=== PATIENT | female | born 1995 | race Two or more races ===

== ENCOUNTER 2022-07-22 10:28 | Emergency (ER) | payer SELFPAY ==
[~2022-07-22] VITALS: Ht 167.6 cm; Wt 68.0 kg
[2022-07-22 12:00] VITALS: BP 168/104
[2022-07-22 12:38] LABS: Basophils # (auto) 0 10 ^3/uL (0-0.2); Basophils % (auto) 0.3 % (0.0-2.0); Eosinophils # (auto) 0.1 10 ^3/uL (0-0.8); Eosinophils % (auto) 1.3 % (0.0-7.0); Hematocrit 39.9 % (36.0-46.0); Hemoglobin 12.9 g/dL (12.2-16.2); Lymphocytes % (auto) 30.8 % (10.0-50.0); Mean Corpuscular Hgb Conc. 32.3 g/dL (32.0-36.0); Mean Corpuscular Volume 83.6 fL (80.0-100.0); Monocytes # (auto) 0.4 10 ^3/uL (0-1.3); Monocytes % (auto) 6.3 % (0.0-12.0); Neutrophils % (auto) 61.3 % (37.0-80.0); Nucleated Red Blood Cells % 0.1 %; Red Blood Cells 4.77 10^6/uL (4.0-5.20); Red Cell Distribution Width 14.5 % (11.8-14.3); White Blood Cell 6.6 10^3/uL (4.4-10.8)
[2022-07-22 12:45] LABS: Urine Bacteria NONE SEEN /hpf (None Seen); Urine Blood Negative /uL (Negative); Urine Mucus FEW (None Seen); Urine Specific Gravity 1.011 (1.001-1.035); Urine WBC <1 /hpf (0 - 5)
[2022-07-22 13:02] LABS: Albumin 3.7 g/dL (3.4-5.0); Calcium 8.5 mg/dL (8.5-10.1); Potassium 3.8 mmol/L (3.5-5.1)
[2022-07-22 13:06] LABS: BUN/Creatinine Ratio 11.9; Bilirubin, Total 0.2 mg/dL (0.2-1.0); Total Protein 7.6 g/dL (6.4-8.2)
[2022-07-22] MEDS ORDERED: METH250T8 PO (13:43)
== END 2022-07-22 13:50 | disposition home or self-care (01) ==
LOC: ER 10:28
DX: O20.0 Threatened abortion (principal); O16.1 Unspecified maternal hypertension, first trimester; Z3A.01 Less than 8 weeks gestation of pregnancy
CPT/HCPCS: 36415; 80053; 81001; 84702; 85025

== ENCOUNTER 2022-07-26 11:50 | Emergency (ER) | payer SELFPAY ==
[~2022-07-26] VITALS: Ht 152.4 cm; Wt 68.6 kg
[~2022-07-26 11:50] MED LIST: METH250T8 PO
[2022-07-26 13:41] LABS: Basophils # (auto) 0.1 10 ^3/uL (0-0.2); Basophils % (auto) 0.8 % (0.0-2.0); Eosinophils # (auto) 0.1 10 ^3/uL (0-0.8); Eosinophils % (auto) 1.7 % (0.0-7.0); Hematocrit 38.6 % (36.0-46.0); Hemoglobin 12.6 g/dL (12.2-16.2); Lymphocytes # (auto) 2.6 10 ^3/uL (0.4-5.4); Lymphocytes % (auto) 37.8 % (10.0-50.0); Mean Corpuscular Hemoglobin 27.2 pg (28.0-32.0); Mean Corpuscular Hgb Conc. 32.7 g/dL (32.0-36.0); Monocytes # (auto) 0.4 10 ^3/uL (0-1.3); Monocytes % (auto) 6.3 % (0.0-12.0); Neutrophils # (auto) 3.7 10 ^3/uL (1.6-8.6); Neutrophils % (auto) 53.4 % (37.0-80.0); Red Blood Cells 4.65 10^6/uL (4.0-5.20); Red Cell Distribution Width 14.4 % (11.8-14.3); White Blood Cell 6.9 10^3/uL (4.4-10.8)
[2022-07-26 14:00] LABS: Albumin 3.8 g/dL (3.4-5.0); BUN/Creatinine Ratio 12.3; Calcium 8.8 mg/dL (8.5-10.1)
[2022-07-26 14:14] LABS: Bilirubin, Total 0.2 mg/dL (0.2-1.0); Total Protein 7.8 g/dL (6.4-8.2)
[2022-07-26 19:44] VITALS: BP 168/98
== END 2022-07-26 19:50 | disposition home or self-care (01) ==
LOC: ER 11:50
DX: O03.9 Complete or unspecified spontaneous abortion without complication (principal); O16.1 Unspecified maternal hypertension, first trimester; Z3A.01 Less than 8 weeks gestation of pregnancy
CPT/HCPCS: 36415; 76856; 80053; 84702; 85025

== ENCOUNTER 2024-05-08 14:40 | Observation (INO) | payer MEDICAID ==
[~2024-05-08 14:40] MED LIST changes: +METH250T28 PO; -METH250T8 PO
[2024-05-08 16:14] LABS: Alanine Aminotransferase 32 U/L (7-40); Albumin 3.8 g/dL (3.2-4.8); Alkaline Phosphatase 195 U/L (46-116); Anion Gap 6 (5-15); Aspartate Aminotransferase 21 U/L (13-40); BUN/Creatinine Ratio 11.3 (10.0-20.0); Bilirubin, Total 0.2 mg/dL (0.2-1.0); Blood Urea Nitrogen 6 mg/dL (9-23); Calcium 9.1 mg/dL (8.7-10.4); Carbon Dioxide 21 mmol/L (20-30); Chloride 108 mmol/L (98-107); Glucose 102 mg/dL (74-106); Potassium 3.9 mmol/L (3.5-5.1); Sodium 135 mmol/L (136-145); Total Protein 6.6 g/dL (5.7-8.2); Uric Acid 4.1 mg/dL (3.1-7.8)
[2024-05-08] MEDS ORDERED: LABE300T5 PO (16:15)
[2024-05-08 16:26] LABS: INR 0.9 (0.9-1.15); Partial Thromboplastin Time 26.9 SEC (24.5-34.5); Prothrombin Time 9.6 sec (9.3-11.8)
[2024-05-08 16:53] LABS: Urine Bacteria FEW /hpf (None Seen); Urine Blood Negative /uL (Negative); Urine Clarity Clear (Clear); Urine Color Colorless (Yellow); Urine Protein, UAD Negative (Negative); Urine Specific Gravity 1.004 (1.001-1.035); Urine Urobilinogen Normal (Negative); Urine WBC 3 /hpf (0 - 5); Urine pH 6.5 (5.0-9.0)
[2024-05-08 17:34] LABS: Basophils # (auto) 0 10 ^3/uL (0-0.2); Eosinophils # (auto) 0.1 10 ^3/uL (0-0.8); Hemoglobin 10.1 g/dL (12.2-16.2); Mean Corpuscular Hemoglobin 24.6 pg (28.0-32.0); Mean Corpuscular Hgb Conc. 32.3 g/dL (32.0-36.0); Monocytes # (auto) 0.5 10 ^3/uL (0-1.3); Neutrophils # (auto) 5.1 10 ^3/uL (1.6-8.6); Nucleated Red Blood Cells % 0.1 %; White Blood Cell 7.5 10^3/uL (4.4-10.8)
[2024-05-08 17:37] LABS: Basophils % (auto) 0.3 % (0.0-2.0); Hematocrit 31.3 % (36.0-46.0); Lymphocytes # (auto) 1.9 10 ^3/uL (0.4-5.4); Lymphocytes % (auto) 24.6 % (10.0-50.0); Mean Corpuscular Volume 76.3 fL (80.0-100.0); Monocytes % (auto) 6.6 % (0.0-12.0); Neutrophils % (auto) 67.5 % (37.0-80.0); Red Blood Cells 4.11 10^6/uL (4.0-5.20); Red Cell Distribution Width 17.8 % (11.8-14.3)
[2024-05-08 18:01] LABS: Protein, Urine 6.1 mg/dL (0.0-11.9)
[2024-05-08 18:03] LABS: Urine Protein/Creatinine Ratio 0.27
== END 2024-05-08 18:54 | disposition home or self-care (01) ==
LOC: LDRP 14:40 → UNDOADMOB 14:40 → LDRP 14:58
PROVIDERS: ADMIT Obstetrics & Gynecology; ATTEND Obstetrics & Gynecology
DX: O13.3 Gestational [pregnancy-induced] hypertension without significant proteinuria, third trimester (principal); Z3A.38 38 weeks gestation of pregnancy
CPT/HCPCS: 36415; 59025; 76818; 80053; 81001; 81002; 82570; 84156; 84550; 85025; 85610; 85730; 94760; G0378

== ENCOUNTER 2024-05-10 19:39 | Inpatient (IN) | payer MEDICAID ==
[~2024-05-10] VITALS: Ht 162 cm; Wt 89.4 kg
[~2024-05-10 19:39] MED LIST changes: +LABE300T5 PO
[2024-05-10] MEDS ORDERED: BUTORPHANOL TARTRATE 2 MG/1 ML VIAL IV PRN ×2 (22:15)
[2024-05-10] MEDS ORDERED: LIDOCAINE 2%HCL (LOCAL ANESTH.) INJ 20ML MDV IJ PRN (22:15)
[2024-05-10 22:52] LABS: Basophils # (auto) 0.1 10 ^3/uL (0-0.2); Basophils % (auto) 0.5 % (0.0-2.0); Eosinophils # (auto) 0.1 10 ^3/uL (0-0.8); Eosinophils % (auto) 0.8 % (0.0-7.0); Hematocrit 34.2 % (36.0-46.0); Lymphocytes # (auto) 2.8 10 ^3/uL (0.4-5.4); Lymphocytes % (auto) 29.4 % (10.0-50.0); Mean Corpuscular Hemoglobin 24.4 pg (28.0-32.0); Mean Corpuscular Hgb Conc. 32.1 g/dL (32.0-36.0); Mean Corpuscular Volume 76.1 fL (80.0-100.0); Monocytes # (auto) 0.6 10 ^3/uL (0-1.3); Monocytes % (auto) 6.1 % (0.0-12.0); Neutrophils % (auto) 63.2 % (37.0-80.0); Nucleated Red Blood Cells % 0.1 %; Red Blood Cells 4.49 10^6/uL (4.0-5.20); Red Cell Distribution Width 18.1 % (11.8-14.3); White Blood Cell 9.5 10^3/uL (4.4-10.8)
[2024-05-10 23:07] LABS: INR 0.92 (0.9-1.15); Partial Thromboplastin Time 25.4 SEC (24.5-34.5); Prothrombin Time 9.8 sec (9.3-11.8)
[2024-05-10 23:08] LABS: Alanine Aminotransferase 37 U/L (7-40); Albumin 4.2 g/dL (3.2-4.8); Alkaline Phosphatase 216 U/L (46-116); Anion Gap 8 (5-15); Aspartate Aminotransferase 22 U/L (13-40); BUN/Creatinine Ratio 10.8 (10.0-20.0); Blood Urea Nitrogen 7 mg/dL (9-23); Calcium 9.4 mg/dL (8.5-10.1); Carbon Dioxide 22 mmol/L (20-30); Chloride 107 mmol/L (98-107); Glucose 67 mg/dL (74-106); Potassium 4.1 mmol/L (3.5-5.1); Sodium 137 mmol/L (136-145)
[2024-05-10 23:09] LABS: Bilirubin, Total 0.3 mg/dL (0.2-1.0); Total Protein 7.2 g/dL (5.7-8.2)
[2024-05-10] MEDS: LACTATED RINGER'S 1,000 ML IV SCH (23:30)
[2024-05-10 23:48] LABS: Uric Acid 4.3 mg/dL (3.1-7.8)
[2024-05-11] VITALS (13 sets, daily range): BP systolic 115–139; BP diastolic 71–82; PULSE 77–92; RESP 16–17; TEMP 98.8; O2SAT 97–99
[2024-05-11 00:31] LABS: Urine Bacteria None Seen /hpf (None Seen)
[2024-05-11 00:39] LABS: Urine Blood Negative /uL (Negative); Urine Clarity Clear (Clear); Urine Color Light-Yellow (Yellow); Urine Protein, UAD TRACE (Negative); Urine Specific Gravity 1.014 (1.001-1.035); Urine Urobilinogen Normal (Negative); Urine WBC <1 /hpf (0 - 5); Urine pH 6.5 (5.0-9.0)
[2024-05-11] MEDS: WITCH HAZEL-GLYCERIN PAD TOP PRN (01:01)
[2024-05-11] MEDS: PHISODERM TOP SOLN 240ML BTL TOP PRN (01:01)
[2024-05-11] MEDS: miSOPROStol 50 MCG per PRE-CUT 1/2 TAB PO PRN (01:01)
[2024-05-11] MEDS: DERMOPLAST 60ML BOTTLE TOP PRN (01:01)
[2024-05-11 01:31] LABS: Protein, Urine 25.8 mg/dL (0.0-11.9)
[2024-05-11 01:33] LABS: Amphetamine Screen, Urine Neg (NEGATIVE)
[2024-05-11 01:34] LABS: Barbiturate Scree,Urine Neg (NEGATIVE); Benzodiazephine Screen, Urine Neg (NEGATIVE); Cannabinoid Screen, Urine Neg (NEGATIVE); Cocaine Screen, Urine Neg (NEGATIVE); Creatinine, Urine 63.39 mg/dL (30.0-125.0); Opiate Scree,Urine Neg (NEGATIVE); Phencyclidine Screen, Urine Neg (NEGATIVE); Urine Protein/Creatinine Ratio 0.41
[2024-05-11] MEDS ORDERED: PENICILLIN G POTASSIUM 2,500,000 UNITS in D5W 5% 50 ML IV SCH (02:15)
[2024-05-11] MEDS: LABETALOL HCL 200 MG TAB PO SCH ×2 (06:24→18:00)
[2024-05-11] MEDS: LACTATED RINGER'S 1,000 ML IV ONE (08:27)
[2024-05-11] MEDS: ROPIVACAINE HCL 200 ML ONE (09:01)
[2024-05-11] MEDS ORDERED: LABETALOL HCL 200 MG TAB PO SCH (10:00)
[2024-05-11] MEDS: PENICILLIN G POT 5MIL/D5 50ML 50 ML IV ONE (14:19)
[2024-05-11] MEDS: LACT. RINGERS/OXYTOCIN 20UNITS 500 ML IV ONE ×2 (16:23→17:19)
[2024-05-11] MEDS: MAGNESIUM SULFATE 100 ML IV ONE ×2 (17:10→18:04)
[2024-05-11] MEDS: MAGNESIUM SULFATE 40MG/ML 1,000 ML IV ONE (17:31)
[2024-05-11] MEDS: LORazepam 2MG/ML-1ML VIAL IV ONE (17:45)
[2024-05-11] MEDS: MAGNESIUM SULFATE 40MG/ML 1,000 ML IV SCH (17:45)
[2024-05-11] MEDS ORDERED: ONDANSETRON ODT 4 MG TAB PO PRN (18:00)
[2024-05-11] MEDS ORDERED: ACETAMINOPHEN 325 MG TAB PO PRN (18:00)
[2024-05-11] MEDS: ePHEDrine SULFATE 50 MG/ML AMP IV ONE (18:03)
[2024-05-12] VITALS (18 sets, daily range): BP systolic 97–146; BP diastolic 54–87; PULSE 75–97; RESP 16–18; TEMP 98–99.5; O2SAT 97–100
[2024-05-12] MEDS: IBUPROFEN 600 MG TAB PO PRN (01:06)
[2024-05-12] MEDS: AMMONIA 0.33 ML INHALANT IN ONE (09:10)
[2024-05-13] MEDS ORDERED: IBU600T PO (02:53)
[2024-05-13 03:00] VITALS: BP 133/81; PULSE 77; RESP 17; TEMP 97.9; O2SAT 98
[2024-05-13 03:08] LABS: Basophils # (auto) 0 10 ^3/uL (0-0.2); Eosinophils # (auto) 0.1 10 ^3/uL (0-0.8); Eosinophils % (auto) 0.9 % (0.0-7.0); Lymphocytes # (auto) 2.9 10 ^3/uL (0.4-5.4); Monocytes # (auto) 0.7 10 ^3/uL (0-1.3)
[2024-05-13 03:10] LABS: Basophils % (auto) 0.3 % (0.0-2.0); Hematocrit 30.6 % (36.0-46.0); Hemoglobin 9.8 g/dL (12.2-16.2); Lymphocytes % (auto) 26.2 % (10.0-50.0); Mean Corpuscular Hemoglobin 24.3 pg (28.0-32.0); Mean Corpuscular Volume 76.1 fL (80.0-100.0); Monocytes % (auto) 6.3 % (0.0-12.0); Neutrophils # (auto) 7.3 10 ^3/uL (1.6-8.6); Neutrophils % (auto) 66.3 % (37.0-80.0); Red Blood Cells 4.02 10^6/uL (4.0-5.20); Red Cell Distribution Width 18.3 % (11.8-14.3); White Blood Cell 11.1 10^3/uL (4.4-10.8)
[2024-05-13] MEDS ORDERED: DOCU-94 PO (07:20)
[2024-05-13] MEDS ORDERED: LABE100T7 PO (07:20)
[2024-05-13] MEDS ORDERED: FER325T PO (07:20)
[2024-05-13] MEDS ORDERED: PREN-96 PO (07:20)
[2024-05-13] MEDS ORDERED: ASCO500T11 PO (07:20)
[2024-05-13 07:23] VITALS: BP 131/81; PULSE 85; RESP 18; TEMP 98.1; O2SAT 98
[2024-05-13 09:07] LABS: RPR Non Reactive (Non Reactive)
[2024-05-14 19:06] LABS: Treponema pallidum Ab (FTA-Ab) Non Reactive (Non Reactive)
== END 2024-05-13 10:10 | disposition home or self-care (01) | DRG 560 ==
LOC: LDRP 19:39 → OBSVTOIN 22:20 → LDRP 23:00
PROVIDERS: ADMIT Obstetrics & Gynecology; ATTEND Obstetrics & Gynecology
PROC: 10E0XZZ Delivery of Products of Conception, External Approach (ICD-10-PCS; principal; 2024-05-11)
PROC: 0W8NXZZ Division of Female Perineum, External Approach (ICD-10-PCS; 2024-05-11)
PROC: 3E0DXGC Introduction of Other Therapeutic Substance into Mouth and Pharynx, External Approach (ICD-10-PCS; 2024-05-11)
PROC: 0KQM0ZZ Repair Perineum Muscle, Open Approach (ICD-10-PCS; 2024-05-11)
PROC: 3E0R3BZ Introduction of Anesthetic Agent into Spinal Canal, Percutaneous Approach (ICD-10-PCS; 2024-05-11)
PROC: 00HU33Z Insertion of Infusion Device into Spinal Canal, Percutaneous Approach (ICD-10-PCS; 2024-05-11)
DX: O69.81X0 Labor and delivery complicated by cord around neck, without compression, not applicable or unspecified (principal); Z37.0 Single live birth; I95.9 Hypotension, unspecified; O16.4 Unspecified maternal hypertension, complicating childbirth; O14.04 Mild to moderate pre-eclampsia, complicating childbirth; O99.893 Other specified diseases and conditions complicating puerperium; O70.1 Second degree perineal laceration during delivery; Z3A.39 39 weeks gestation of pregnancy
CPT/HCPCS: 36415; 59025; 59409; 62282; 80053; 80307; 81001; 81002; 82570; 83735; 84156; 84550; 85025; 85610; 85730; 86592; 86803; 86850; 86900; 86901; 94760; 94762; 96360; 96361; 96365; 96366; G0378; J2540; J2590; J7060